=== PATIENT | male | born 1950 | race Caucasian/White ===

== ENCOUNTER → 2017-09-23 | Outpatient (CLI) | payer BC ==
[~2017-09-23] MED LIST: LTR510 PO; MEDLIST
[2017-09-23 10:02] LABS: % FREE PSA 17.9 %; FREE PSA 0.85 ng/ml; PROSTATE SPECIFIC ANTIGEN 4.75 ng/ml (0.000-4.000)
== END | disposition home or self-care (01) ==
LOC: C.LAB1850 08:17
PROVIDERS: ATTEND Urology
DX: R97.20 Elevated prostate specific antigen [PSA] (principal)

== ENCOUNTER 2021-06-26 04:44 | Observation (INO) ==
--- NOTE | 2021-06-26 05:13 | Emergency Department Note ---
History of Present Illness General Chief complaint: Cardiac Assessment Stated complaint: SOB, CLAMMY Time Seen by Provider: 06/26/21 04:54 Source: patient Mode of arrival: ambulatory Limitations: no limitations History of Present Illness Provider complaint: palpitations Onset (ago): week(s) 2 Relieved By: + rest Exacerbated By: + movement Associated symptoms: + chest pain, + nausea/vomiting and + shortness of breath Treatments prior to arrival: none This is a 71-year-old male presents the emergency department complaining of palpitations. Patient states he first began noticing symptoms 2 weeks ago, with a sense of fluttering in his chest. He states he also noticed intermittent sweating, shortness of breath, and lightheadedness, particularly with standing and movement. Patient states symptoms were initially intermittent, and he did follow-up with his PCP Dr. Mensah who referred him for a Holter monitor. He states the Holter could not be placed until this Wednesday. He states the symptoms have become more persistent and he was feeling worse tonight, and his convinced him to come to the emergency room. Patient initially noted to have a heart rate in the 30s in triage, upon being placed in the room heart rate was in the 70s with frequent ectopy. Patient states when his symptoms began, he did cut back on his use of caffeine. Admits to occasional alcohol on the weekends w hen going out to restaurants, denies any recent change in medications, illness, or antibiotics. No prior heart history. He states he did undergo a stress test and echo in 2019. Pt seen during a time of high acuity and national emergency pandemic while wearing PPE. Home Medications Medication Instructions Recorded Confirmed Type amlodipine 5 mg-benazepril 20 mg 20 cap PO DAILY 06/26/21 06/26/21 History capsule (Lotrel) dutasteride 0.5 mg capsule 0.5 mg PO DAILY 06/26/21 06/26/21 History (Avodart) tamsulosin 0.4 mg capsule (Flomax) 0.8 mg PO DAILY 06/26/21 06/26/21 History Allergies Allergy/AdvReac Type Severity Reaction Status Date / Time No Known Allergies Allergy Verified 10/02/19 13:50 Past Med/Surg History Medical History (Updated 06/27/21 @ 06:49 by Sara Phillips DO) BPH (benign prostatic hyperplasia) Elevated PSA Frequent PVCs Hypertension Other eosinophilia Surgical History (Updated 06/26/21 @ 09:04 by Obie Marcelino PA-C) No pertinent past surgical history Family History (Updated 06/26/21 @ 09:05 by Obie Marcelino PA-C) Father Heart disease at age 85 Social History (Updated 06/26/21 @ 09:06 by Obie Marcelino PA-C) Smoking Status: Former smoker Tobacco Type: Cigarettes Age Quit Using Tobacco: 20; Years Smoked: 3; Cigarettes Per Day: 6; Number of Years Since Quit: 51; Second Hand Exposure: No; Do You Dip or Chew Tobacco: No; Tobacco Cessation Education Requested by Patient: No Hx Alcohol Use: No Hx Substance Use: No Preferred Language: Burkinan Communication Ability: Effective Merchandising Representative Required: No Beliefs That Will Affect Care: None Current Living Situation: Spouse current occupational status: employed 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 Other Information That Helps Us Care for You: No Feels Safe at Home: Yes Safety Concerns: Feels Safe At This Time Assistive Devices: Glasses Review of Systems A total of 10 systems reviewed and were otherwise negative All systems reviewed & are unremarkable except as noted in HPI & below Physical Exam Vital Signs Vital Signs - 24 hr 06/26/21 07:01 Pulse Rate 61 Pulse Rate from SpO2 Sensor 32 L Respiratory Rate 23 Blood Pressure 128/69 Blood Pressure Mean 88 Pulse Oximetry 95 GENERAL: alert, well appearing, well nourished, no distress, non-toxic EYE EXAM: normal conjunctiva, PERRL and EOM's grossly intact OROPHARYNX: no exudate, no erythema, lips, buccal mucosa, and tongue normal and mucous membranes are moist NECK: supple, no nuchal rigidity, no adenopathy, non-tender LUNGS: Clear to auscultation. Normal chest wall mechanics, no w/r/r HEART: no murmurs, S1 normal and S2 normal ABDOMEN: abdomen soft, non-tender, normo-active bowel sounds, no masses, no rebound or guarding. BACK: Back is symmetrical on inspection and there is no deformity, no midline tenderness, no CVA tenderness. SKIN: no rashes and no bruising UPPER EXTREMITIES: upper extremities are grossly normal. FROM, nml pulses b/l. LOWER EXTREMITIES: No pitting edema. FROM, nml pulses b/l. NEURO EXAM: Normal sensorium, cranial nerves II-XII grossly intact, normal speech, no gross weakness of arms, no gross weakness of legs. Gross sensation intact. Course Administered Medications Enalapril Maleate (Enalapril Maleate 10 Mg Tab) 20 mg PO DAILY BRETT Stop: 07/26/21 09:29 Last Admin: 06/26/21 12:14 Dose: 20 mg Documented by: [id number] Enoxaparin Sodium (Enoxaparin Inj 40 Mg/0.4 Ml Syr) 40 mg SQ DAILY BRETT Stop: 07/26/21 09:29 Last Admin: 06/26/21 12:14 Dose: 40 mg Documented by: [id number] Metoprolol Tartrate (Metoprolol Tartrate 25 Mg Tab) 25 mg PO BID BRETT Stop: 07/26/21 20:59 Last Admin: 06/26/21 21:30 Dose: 25 mg Documented by: [id number] Miscellaneous (Dutasteride-Order Awaiting Action) 1 ea N/A QS BRETT Stop: 07/26/21 15:59 Last Admin: 06/26/21 23:34 Dose: 1 ea Documented by: [id number] Admin: 06/26/21 15:59 Dose: Not Given Documented by: [id number] Discontinued Medications Amlodipine Besylate (Amlodipine Besylate 5 Mg Tab) 5 mg PO DAILY BRETT Stop: 07/26/21 09:29 Last Admin: 06/26/21 12:13 Dose: 5 mg Documented by: [id number] Medical Decision Making Differential Diagnosis Differential diagnosis includes etiologies such as premature contractions, electrolyte abnormality, cardiac dysrhythmia, thyroid dysfunction, pulmonary emb olism, infection, gastrointestinal, as well as others were entertained. Medical Records Attestation: I reviewed the patient's medical records. Home Medications Current Medication List: was personally reviewed by me Laboratory Data Attestation: I reviewed the patient's lab results. Result diagrams: 06/27/21 06:11 06/26/21 04:55 Lab Results 06/26/21 06/26/21 06/26/21 Range/Units 04:55 04:55 04:55 WBC 7.98 (4.8-10.8) K/uL RBC 5.01 (4.7-6.1) M/uL Hgb 15.7 (14.0-18.0) g/dL Hct 45.6 (42-52) % MCV 91.0 (80-100) fL MCH 31.3 (25-34) pg MCHC 34.4 (32-36) g/dL RDW Std Deviation 44.7 (36.4-46.3) fL RDW Coeff of Uli 13.6 (11.5-14.5) % Plt Count 204 (130-400) K/uL MPV 10.7 H (7.4-10.4) fL Immature Gran % (Auto) 0.3 % Neut % (Auto) 41.8 % Lymph % (Auto) 32.5 % [place] % (Auto) 11.8 % Eos % (Auto) 12.7 % Baso % (Auto) 0.9 % Neut # (Auto) 3.35 (1.4-6.5) K/uL Lymph # (Auto) 2.59 (1.2-3.4) K/uL [place] # (Auto) 0.94 H (0.11-0.59) K/uL Eos # (Auto) 1.01 H (0-0.5) K/uL Baso # (Auto) 0.07 (0-0.2) K/uL Immature Gran # (Auto) 0.02 (0.00-0.02) K/uL Sodium 140 (136-145) mmol/L Potassium 4.3 (3.5-5.1) mmol/L Chloride 111 H (98-107) mmol/L Carbon Dioxide 24 (21-32) mmol/L Anion Gap 5.0 (3-11) BUN 13 (7-18) mg/dl Creatinine 0.91 (0.6-1.4) mg/dl Est Cr Clr Drug Dosing 90.7 ml/min Est GFR ( Amer) 96.6 ml/min Est GFR (Non-Af Amer) 83.3 ml/min BUN/Creatinine Ratio 13.9 (10-20) Glucose 116 H (70-99) mg/dl Calcium 8.9 (8.5-10.1) mg/dl Magnesium 2.3 (1.8-2.4) mg/dl Total Bilirubin 0.7 (0.2-1) mg/dl AST 17 (15-37) U/L ALT 32 (12-78) U/L Alkaline Phosphatase 64 (45-117) U/L Troponin I < 0.015 (0-0.045) ng/ml NT-Pro-B Natriuret Pep 668 (0-900) pg/ml Total Protein 7.6 (6.4-8.2) gm/dl Albumin 4.0 (3.4-5.0) gm/dl Globulin 3.6 (2.5-4.0) gm/dl Albumin/Globulin Ratio 1.1 (0.9-2) TSH 1.720 (0.300-4.500) uIu/ml Lyme Disease IgG Ab Negative (Negative) Lyme Disease IgM Ab Negative (Negative) COVID-19 Eval Order SARS-CoV-2 (PCR) (Negative) 06/26/21 06/26/21 Range/Units 05:50 05:50 WBC (4.8-10.8) K/uL RBC (4.7-6.1) M/uL Hgb (14.0-18.0) g/dL Hct (42-52) % MCV (80-100) fL MCH (25-34) pg MCHC (32-36) g/dL RDW Std Deviation (36.4-46.3) fL RDW Coeff of Uli (11.5-14.5) % Plt Count (130-400) K/uL MPV (7.4-10.4) fL Immature Gran % (Auto) % Neut % (Auto) % Lymph % (Auto) % [place] % (Auto) % Eos % (Auto) % Baso % (Auto) % Neut # (Auto) (1.4-6.5) K/uL Lymph # (Auto) (1.2-3.4) K/uL [place] # (Auto) (0.11-0.59) K/uL Eos # (Auto) (0-0.5) K/uL Baso # (Auto) (0-0.2) K/uL Immature Gran # (Auto) (0.00-0.02) K/uL Sodium (136-145) mmol/L Potassium (3.5-5.1) mmol/L Chloride (98-107) mmol/L Carbon Dioxide (21-32) mmol/L Anion Gap (3-11) BUN (7-18) mg/dl Creatinine (0.6-1.4) mg/dl Est Cr Clr Drug Dosing ml/min Est GFR ( Amer) ml/min Est GFR (Non-Af Amer) ml/min BUN/Creatinine Ratio (10-20) Glucose (70-99) mg/dl Calcium (8.5-10.1) mg/dl Magnesium (1.8-2.4) mg/dl Total Bilirubin (0.2-1) mg/dl AST (15-37) U/L ALT (12-78) U/L Alkaline Phosphatase (45-117) U/L Troponin I (0-0.045) ng/ml NT-Pro-B Natriuret Pep (0-900) pg/ml Total Protein (6.4-8.2) gm/dl Albumin (3.4-5.0) gm/dl Globulin (2.5-4.0) gm/dl Albumin/Globulin Ratio (0.9-2) TSH (0.300-4.500) uIu/ml Lyme Disease IgG Ab (Negative) Lyme Disease IgM Ab (Negative) COVID-19 Eval Order Covid19 at [facility] SARS-CoV-2 (PCR) NEGATIVE (Negative) Imaging Data My Impression: X-ray: I interpreted the following studies. Chest: A single view study of the chest was reviewed and was negative for cardiomegaly, focal infiltrate, effusion, pulmonary edema, or wide mediastinum. Radiologist's Impression: Chest X-Ray 06/26/21 05:08 XR chest 1V portable CLINICAL HISTORY: palpitations COMPARISON STUDY: Chest radiograph February 01, 2015. FINDINGS: Lung volumes are normal. Lungs are clear. There is no pneumothorax or pleural effusion. There is mild enlargement of the cardiac silhouette. Media stinal contours are normal. There is no evidence for pulmonary edema. IMPRESSION: No acute cardiopulmonary findings. ACT 112: Negative or not required by law. Electronically signed by: Kyle Fontenot M.D. 06/26/2021 6:51 AM ECG Data Attestation: I personally reviewed and interpreted this ECG as follows: Indication: + palpitations Rate (beats per minute): 78 Rhythm: + normal sinus ECG Intervals/blocks: + First degree AV block, + IVCD and + Normal QT ECG [place]: + Left axis deviation ECG ST segments: + Nonspecific ST abnormalities ECG Findings: + PVCs MDM Narrative This is a 71-year-old male presents emergency department due to concern for worsening palpitations with associated chest discomfort, lightheadedness, and shortness of breath. Patient found to be significantly bradycardic upon arrival in triage with concern for third-degree AV block. Patient immediately brought back and I was called to the room. Patient at that time then found to be changing from bigeminy to a second-degree AV block, to a sinus rhythm with frequent PVCs. Patient feels improved at rest, however with any attempts at standing he feels significantly lightheaded, with increased discomfort and a slight sense of feeling short of breath. No recent illness or change in medications. Patient's labs reassuring including a negative Lyme, and normal electrolytes. No prior cardiac history and patient does not routinely follow with cardiology. He was scheduled for an outpatient Holter monitor to begin this Wednesday. Due to significant symptoms particularly with any attempts at sta nding or ambulation and multiple different rhythms noted while monitored on telemetry, case discussed with hospitalist for additional evaluation and management. Patient was rechecked multiple times in the department, kept up-to-date on all results and plan. He and verbalized understanding. P atient continued to be well-appearing while at rest. An order was placed for continuous cardiac monitoring. The monitor shows a rate of _68_ with _bigeminy_ rhythm. Impression & Plan Palpitation, Lightheadedness, Abnormal ECG, Frequent PVCs Discharge Plan Visit Data Chief Complaint: Cardiac Assessment Stated Complaint: SOB, CLAMMY ED Provider: Sara Phillips Discharge Problem: Palpitation, Lightheadedness, Abnormal ECG, Frequent PVCs Patient Disposition: Admitted As Inpatient Discharge Instructions Interventions: ED Discharge Assessment Last Done: 06/26/21 08:23
[2021-06-26 05:21] LABS: Basophils # (auto) 0.07 K/uL (0-0.2); Basophils % (auto) 0.9 %; Eosinophils # (auto) 1.01 K/uL (0-0.5); Eosinophils % (auto) 12.7 %; Hematocrit (blood only) 45.6 % (42-52); Hemoglobin 15.7 g/dL (14.0-18.0); Immature Granulocytes # (auto) 0.02 K/uL (0.00-0.02); Immature Granulocytes % (auto) 0.3 %; Lymphocytes # (auto) 2.59 K/uL (1.2-3.4); Lymphocytes % (auto) 32.5 %; Mean Corpuscular Hemoglobin 31.3 pg (25-34); Mean Corpuscular Hgb Conc 34.4 g/dL (32-36); Mean Platelet Volume 10.7 fL (7.4-10.4); Monocytes # (auto) 0.94 K/uL (0.11-0.59); Monocytes % (auto) 11.8 %; Neutrophils # (auto) 3.35 K/uL (1.4-6.5); Neutrophils % (auto) 41.8 %; Platelet Count 204 K/uL (130-400); RDW Coefficient of Variation 13.6 % (11.5-14.5); RDW Standard Deviation 44.7 fL (36.4-46.3); Red Blood Count 5.01 M/uL (4.7-6.1); White Blood Count 7.98 K/uL (4.8-10.8)
[2021-06-26 05:27] LABS: Alanine Aminotransferase 32 U/L (12-78); Aspartate Aminotransferase 17 U/L (15-37); BUN Creatinine Ratio 13.9 (10-20); Blood Urea Nitrogen 13 mg/dl (7-18); Calcium 8.9 mg/dl (8.5-10.1); Carbon Dioxide 24 mmol/L (21-32); Chloride 111 mmol/L (98-107); Creatinine Clr Calc Pharmacy 90.7 ml/min; Est GFR (African American) 96.6 ml/min; Est GFR (Non-African American) 83.3 ml/min; Glucose 116 mg/dl (70-99); Magnesium 2.3 mg/dl (1.8-2.4); Potassium 4.3 mmol/L (3.5-5.1); Sodium 140 mmol/L (136-145)
[2021-06-26 05:38] LABS: Albumin Globulin Ratio 1.1 (0.9-2); Alkaline Phosphatase 64 U/L (45-117); Bilirubin,Total 0.7 mg/dl (0.2-1); Globulin 3.6 gm/dl (2.5-4.0); NT Pro B Type Natriuretic Pept 668 pg/ml (0-900); Total Protein 7.6 gm/dl (6.4-8.2); Troponin I < 0.015 ng/ml (0-0.045)
[2021-06-26 06:13] LABS: Lyme Ab IgG w/WB Rflx Negative (Negative); Lyme Ab IgM w/WB Rflx Negative (Negative)
--- NOTE | 2021-06-26 06:53 | XRay Report ---
XR chest 1V portable CLINICAL HISTORY: palpitations COMPARISON STUDY: Chest radiograph February 01, 2015. FINDINGS: Lung volumes are normal. Lungs are clear. There is no pneumothorax or pleural effusion. The re is mild enlargement of the cardiac silhouette. Mediastinal contours are normal. There is no eviden ce for pulmonary edema. IMPRESSION: No acute cardiopulmonary findings. ACT 112: Negative or not required by law. Electronically signed by: Kyle Fontenot M.D. 06/26/2021 6:51 AM
--- NOTE | 2021-06-26 08:59 | History & Physical Report ---
Date of Service June 26, 2021 Assessment & Plan (1) Abnormal ECG: Plan: Attending: Dr. Clifton Weaver Impression: 71-year-old male with history of progressive PVCs and now with feeling of atrial flutter. No syncope. No chest pain. Abnormal ECG with PVCs and prolongation of QRS duration. Troponin negative. Being admitted to telemetry for further monitoring and evaluation by cardiology Echocardiogram Serial troponins Electrolytes balanced Troponin and TSH within normal limits Continue home medications for now. No beta-negar due to heart rate in the 50s No indication for acute coronary syndrome Continue to monitor on telemetry Anticipate the patient will probably need Holter monitor or other outpatient monitoring for diagnosis Cardiology consulted. Appreciate their input (2) Hypertension: Plan: Blood pressures well controlled Patient reports systolic pressures in the 120s usually No chest pain or tightness. Continue amlodipine/benazepril Monitor on telemetry (3) BPH (benign prostatic hyperplasia): Plan: Continue dual asteroid and tamsulosin No history of prostate cancer (4) Other eosinophilia: Plan: Eosinophils elevated at 1.01 Incidental finding on differential No reports of myalgias or chest pain No history of ascites No indication for sepsis No reports of seasonal allergies or history of asthma Outpatient work-up as needed (5) DVT prophylaxis: Plan: Chemical prophylaxis with enoxaparin 40 mg subcu every 24 hours Ambulate as tolerated with telemetry Please refer to Dr. Weaver's addendum for further recommendations and corrections Plan: Patient admitted for observation status History of Present Illness Chief Complaint: Palpitations Primary Care Provider: Robin Lara MD Attending: Dr. Weaver This is a 71-year-old male with a past medical history of hypertension, BPH. He has a very remote tobacco abuse history in college. Otherwise, an occasional cigar. 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 The patient states that he has had progressive palpitations over the last several months. They have gotten to the point where it is more of a flutter. He also reports that the frequency has increased. He was seen in the outpatient setting and referred for Holter monitor which was going to be placed tomorrow. Overnight he had increased flutter associated with nausea and came to the emergency department for evaluation at the advice of his Sandra. He is quite active in his job and reports no chest pain at rest or with exertion. He has no dyspnea with exertion. He has no significant shortness of breath. He denies any prior history of heart disease other than hypertension. His father had some heart disease but at the age of 85. His mother had no heart disease that the patient is aware of. He has no history of malignancy. No history of thromboembolic disease. No history of anemia. He denies pleuritic chest pain. He has no cough or sputum production and further denies hemoptysis. No lower extremity pain. No lower extremity edema. He is not aware of any tachyarrhythmia with the feelings of palpitation or a flutter. He has no other acute complaints. The patient has 2 children who are alive and well. He denies any recent fever. He has no other nausea or vomiting. He has no diarrhea. He has no Covid-like symptoms. He is vaccinated for Covid with [employer] x2. Allergies Allergy/AdvReac Type Severity Reaction Status Date / Time No Known Allergies Allergy Verified 10/02/19 13:50 Home Medications Medication Instructions Recorded Confirmed Type amlodipine 5 mg-benazepril 20 mg 20 cap PO DAILY 06/26/21 06/26/21 History capsule (Lotrel) dutasteride 0.5 mg capsule 0.5 mg PO DAILY 06/26/21 06/26/21 History (Avodart) tamsulosin 0.4 mg capsule (Flomax) 0.8 mg PO DAILY 06/26/21 06/26/21 History Past Med/Surg History Medical History (Updated 06/26/21 @ 09:20 by Obie Marcelino PA-C) BPH (benign prostatic hyperplasia) Elevated PSA Hypertension Other eosinophilia Surgical History (Updated 06/26/21 @ 09:04 by Obie Marcelino PA-C) No pertinent past surgical history Family History (Updated 06/26/21 @ 09:05 by Obie Marcelino PA-C) Father Heart disease at age 85 Social History (Updated 06/26/21 @ 09:06 by Obie Marcelino PA-C) Smoking Status: Former smoker Tobacco Type: Cigarettes Age Quit Using Tobacco: 20; Years Smoked: 3; Cigarettes Per Day: 6; Number of Years Since Quit: 51; Second Hand Exposure: No; Do You Dip or Chew Tobacco: No; Tobacco Cessation Education Requested by Patient: No Hx Alcohol Use: No Hx Substance Use: No Preferred Language: Comoran Communication Ability: Effective Trial Examiner Required: No Beliefs That Will Affect Care: None Current Living Situation: Spouse current occupational status: employed 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 Pupils equal and round NOSE: No evidence of epistaxis MOUTH: No lesions or candidiasis NECK: Supple. No appreciation of carotid bruits LUNGS: CTA B/L, no wheezes, rales or rhonchi. Good inspiratory effort HEART: Regular, rate controlled in the 50s ABDOMEN: Soft, NT, ND, BS Present. No pain with deep palpation. No rebound tenderness. No guarding. EXTREMITIES: No LE edema, pedal pulses intact and equal bilaterally NEURO: A&OX3. Cranial nerves II through XII appear to be grossly intact without focal deficit Results & Data Results & Data ([facility]) Vital Signs (Past 12 Hours) Vital Signs Temp Pulse Resp BP Pulse Ox 06/26/21 08:00 57 L 18 128/69 95 06/26/21 07:01 61 23 128/69 95 06/26/21 06:32 60 17 135/61 95 06/26/21 06:01 61 15 116/59 L 94 06/26/21 05:35 65 17 129/59 L 96 06/26/21 05:00 64 14 163/70 H 98 06/26/21 04:47 36.4 C L 36 L 20 176/78 H 97 Laboratory Results 06/26/21 04:55 06/26/21 04:55 06/26/21 04:55 Troponin I < 0.015 Diagnostic Findings Chest X-Ray 06/26/21 05:08 XR chest 1V portable CLINICAL HISTORY: palpitations COMPARISON STUDY: Chest radiograph February 01, 2015. FINDINGS: Lung volumes are normal. Lungs are clear. There is no pneumothorax or pleural effusion. There is mild enlargement of the cardiac silhouette. Mediastinal contours are normal. There is no evidence for pulmonary edema. IMPRESSION: No acute cardiopulmonary findings. ACT 112: Negative or not required by law. Electronically signed by: Kyle Fontenot M.D. 06/26/2021 6:51 AM Medications Administered Current Medications Acetaminophen (Acetaminophen 325 Mg Tab) 650 mg PO Q4H PRN PRN Reason: Pain or Fever Stop: 07/26/21 09:05 Enoxaparin Sodium (Enoxaparin Inj 40 Mg/0.4 Ml Syr) 40 mg SQ Q24H BRETT Stop: 07/26/21 09:05 Non-Formulary Medication (Amlodipine-Benazepril [Lotrel]) 20 cap PO DAILY BRETT Stop: 07/26/21 09:05 Non-Formulary Medication (Dutasteride [Avodart]) 0.5 mg PO DAILY [facility] Stop: 07/26/21 09:05 Ondansetron HCl (Ondansetron Inj 2 Mg/Ml 2 Ml Vial) 4 mg IV Q6H PRN PRN Reason: Nausea Stop: 07/26/21 09:05 ECG Additional Comments: EKG 06/26/2021 Vent. rate 78 BPM WI interval 206 ms QRS duration 120 ms QT/QTc 394/449 ms P-R-T axes 71 -32 83 Sinus rhythm with frequent Premature ventricular complexes Left axis deviation Possible Anterior infarct , age undetermined Abnormal ECG When compared with ECG of 01-JAN-2009 14:30, Premature ventricular complexes are now Present QRS duration has increased Borderline criteria for Anterior infarct are now Present Criteria for Inferior infarct are no longer Present Code Status & VTE Plan Code Status Level I\full resuscitation VTE Prophylaxis Plan VTE Prophylaxis will be ordered: Yes Supervising Physician Co-Signing Physician Notes Patient seen and examined with Obie Marcelino PA-C. I agree with his exam findings, review of systems, assessment and plan. I personally reviewed the lab work and imaging as well. patient resting comfortably, still waiting on echocardiogram report and cardiology consult - Palpitations, flutter sensation at home, progressively getting worse resting HR in the 50's with frequent PVCs, bigeminy check echocardiogram, consult cardiology anticipate he may need monitor even after discharge PG Care Time/CCT Total # of Minutes Spent Total Time Spent with Patient: Total time spent is greater than 50% in c oordination of care (as documented) at patient's floor/unit and/or counseling patient:45 minutes Coding Level of Care Code 28222 Initial Inpt Care Lvl 3 Diagnoses Abnormal ECG R94.31 Hypertension I10 BPH (benign prostatic hyperplasia) N40.0 DVT prophylaxis Z29.9 Other eosinophilia D72.19 Time Spent (min) 45 Comment Patient seen in conjunction with Dr. Weaver
[2021-06-26] MEDS ORDERED: ONDANSETRON INJ 2 MG/ML 2 ML VIAL IV PRN (09:06)
[2021-06-26] MEDS ORDERED: ACETAMINOPHEN 325 MG TAB PO PRN (09:06)
[2021-06-26] MEDS ORDERED: amLODIPine BESYLATE 5 MG TAB PO SCH (09:30)
[2021-06-26] MEDS: ENALAPRIL MALEATE 10 MG TAB PO SCH (12:14)
[2021-06-26] MEDS: ENOXAPARIN INJ 40 MG/0.4 ML SYR SQ SCH (12:14)
--- NOTE | 2021-06-26 16:35 | XCELERA ---
[id number]
[2021-06-26] MEDS: METOPROLOL TARTRATE 25 MG TAB PO SCH (21:30)
--- NOTE | 2021-06-26 22:01 | Cardiology Consultation ---
Date of Consultation June 26, 2021 Assessment & Plan (1) Frequent PVCs: (2) Mitral regurgitation: (3) LVH (left ventricular hypertrophy): (4) Lightheadedness: (5) Hypertension: ASSESSMENT/PLAN: 1.Frequent PVCs: He appears to be symptomatic, which is affecting his quality of life. We discussed the diagnosis. He was reassured. Start metoprolol 25 mg twice daily to see if it off for symptomatic relief. 2. Asymmetric left ventricular hypertrophy: Could possibly represent hypertrophic cardiomyopathy. This may be playing a role with his exertional lightheadedness. No obvious LVOT obstruction at rest. Recommend beta-negar. We discussed potentially undergoing stress echo to evaluate for LVOT obstruction with exercise, as well as blood pressure response. Consider stress echo tomorrow with Doppler evaluation. Continue telemetry. 3. Mitral regurgitation: Discussed echo findings. Non severe. Monitor over time. 4. Lightheadedness: Unclear if this is related toPVCs, severe asymmetric LVH with LVOT obstruction (although not seen at rest conditions), or other etiology. Evaluation as noted above with initiation of beta-negar as well. 5. Tobacco abuse: Stop smoking. 6. Hypertension: Stop amlodipine and initiate beta-negar as above. Beta- negar may offer other benefits in regards to his palpitations. Also if he does develop exertional LVOT obstruction, beta-negar could offer benefit and medications which reduce preload, could exacerbate such hemodynamics. 7. Disposition: Cardiology will continue to follow along. Patient care communicated with Dr. Weaver of the primary hospitalist service. Thank you for allowing me to participate in the care of your patient. Please call for any other questions or concerns. Sincerely, Miguelangel Santos M.D. History of Present Illness Reason for Consultation: "Pre-syncope, frequent PVC, bradycardia" Requesting Physician: Clifton Weaver DO Attending Physician: Clifton Weaver DO History of Present Illness Mr. Guillory is a very pleasant 71-year-old gentleman with a history significant for hypertension who was admitted on 06/26/2021 with palpitations. He has been experiencing palpitations described as a flutter sensation on and off for approximately 2 years. For the past 2 weeks, symptoms have worsened. The night prior to presentation, symptoms were even worse and associated with shortness of breath. He felt like he was dying." Palpitations have been intermittently accompanied by shortness of breath and nausea. His convinced him to come to the ER at approximately 4:00 a.m. this morning. He admits that 2 days prior to presentation, he was seen by primary care for palpitations. A beta-negar was discussed but not initiated due to concerns of hypotension. A 48 hour Holter monitor was scheduled for tomorrow. He recalls being told that he had abnormal ECG or telemetry following a colonoscopy in 2019. His PCP, Dr. Lara, arranged for ECHO and stress testing which apparently was unremarkable. This was done through [facility]. He does not participate in regularly scheduled dedicated exercise but does walk on a treadmill once every couple of weeks. He otherwise remains quite active. At work, he sometimes runs up 2 flights of stairs quickly, which can be accompanied by lightheadedness. He denies syncope. He denies chest pain, edema, melena, hematochezia, hematuria, or other bleeding. He was noted to have frequent PVCs. He reports being told that his pulse was in the 30s. Review of systems: As above. Review of systems otherwise negative/unremarkable. Family history: Father diagnosed with CAD at the age of 82. Social history: Smoked occasionally in college and then later in life occasional cigar. Occasional alcohol. No drugs. Lives at home with his , Maya. They have 2 children, a son and daughter. He is self-employed (real estate appraisal). He was alone in his hospital room. Allergies Allergy/AdvReac Type Severity Reaction Status Date / Time No Known Allergies Allergy Verified 10/02/19 13:50 Home Medications Medication Instructions Recorded Confirmed Type amlodipine 5 mg-benazepril 20 mg 20 cap PO DAILY 06/26/21 06/26/21 History capsule (Lotrel) dutasteride 0.5 mg capsule 0.5 mg PO DAILY 06/26/21 06/26/21 History (Avodart) tamsulosin 0.4 mg capsule (Flomax) 0.8 mg PO DAILY 06/26/21 06/26/21 History Patient History Medical History (Updated 06/26/21 @ 22:11 by Po Santos MD) BPH (benign prostatic hyperplasia) Elevated PSA Frequent PVCs Hypertension Other eosinophilia Surgical History (Updated 06/26/21 @ 09:04 by Obie Marcelino PA-C) No pertinent past surgical history Family History (Updated 06/26/21 @ 09:05 by Obie Marcelino PA-C) Father Heart disease at age 85 Social History (Updated 06/26/21 @ 09:06 by Obie Marcelino PA-C) Smoking Status: Former smoker Tobacco Type: Cigarettes Age Quit Using Tobacco: 20; Years Smoked: 3; Cigarettes Per Day: 6; Number of Years Since Quit: 51; Second Hand Exposure: No; Do You Dip or Chew Tobacco: No; Tobacco Cessation Education Requested by Patient: No Hx Alcohol Use: No Hx Substance Use: No Preferred Language: Bermudian Communication Ability: Effective Systems Architecture Analyst Required: No Beliefs That Will Affect Care: None Current Living Situation: Spouse current occupational status: employed 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 Alert and oriented. HEENT: Anicteric sclera. Neck: No JVD. No bruits. Normal carotid upstrokes bilaterally. Cardiac: PMI was nondisplaced. No ventricular heave. Regular with frequent ectopy. Normal S1-S2. 2/6 holosystolic murmur. No rubs or gallops. Pulmonary: Clear to auscultation bilaterally without wheezes, rales, or rhonchi. Abdomen: Soft, nontender, nondistended, with normoactive bowel sounds. No bruits noted. Extremities: 2+ radial pulses bilaterally. 2+ posterior tibialis pulses bilaterally. No edema or cyanosis. Psychiatric: Affect appears appropriate. Results & Data ([facility]) Vital Signs (Past 12 Hours) Vital Signs Temp Pulse Pulse Resp BP Pulse Ox 06/26/21 19:23 37.0 C 63 18 102/55 L 93 06/26/21 15:10 66 06/26/21 15:08 36.9 C 48 L 18 117/58 L 94 06/26/21 13:31 36.7 C 61 20 127/61 97 06/26/21 11:38 36.8 C 64 18 128/72 95 Laboratory Results Laboratory Results - last 24 hr 06/26/21 06/26/21 06/26/21 04:55 04:55 04:55 WBC 7.98 RBC 5.01 Hgb 15.7 Hct 45.6 MCV 91.0 MCH 31.3 MCHC 34.4 RDW Std Deviation 44.7 RDW Coeff of Uli 13.6 Plt Count 204 MPV 10.7 H Immature Gran % (Auto) 0.3 Neut % (Auto) 41.8 Lymph % (Auto) 32.5 Preston % (Auto) 11.8 Eos % (Auto) 12.7 Baso % (Auto) 0.9 Neut # (Auto) 3.35 Lymph # (Auto) 2.59 Preston # (Auto) 0.94 H Eos # (Auto) 1.01 H Baso # (Auto) 0.07 Immature Gran # (Auto) 0.02 Sodium 140 Potassium 4.3 Chloride 111 H Carbon Dioxide 24 Anion Gap 5.0 BUN 13 Creatinine 0.91 Est Cr Clr Drug Dosing 90.7 Est GFR ( Amer) 96.6 Est GFR (Non-Af Amer) 83.3 BUN/Creatinine Ratio 13.9 Glucose 116 H Calcium 8.9 Magnesium 2.3 Total Bilirubin 0.7 AST 17 ALT 32 Alkaline Phosphatase 64 Troponin I < 0.015 NT-Pro-B Natriuret Pep 668 Total Protein 7.6 Albumin 4.0 Globulin 3.6 Albumin/Globulin Ratio 1.1 TSH 1.720 Lyme Disease IgG Ab Negative Lyme Disease IgM Ab Negative COVID-19 Eval Order SARS-CoV-2 (PCR) 06/26/21 06/26/21 05:50 05:50 WBC RBC Hgb Hct MCV MCH MCHC RDW Std Deviation RDW Coeff of Uli Plt Count MPV Immature Gran % (Auto) Neut % (Auto) Lymph % (Auto) Preston % (Auto) Eos % (Auto) Baso % (Auto) Neut # (Auto) Lymph # (Auto) Preston # (Auto) Eos # (Auto) Baso # (Auto) Immature Gran # (Auto) Sodium Potassium Chloride Carbon Dioxide Anion Gap BUN Creatinine Est Cr Clr Drug Dosing Est GFR ( Amer) Est GFR (Non-Af Amer) BUN/Creatinine Ratio Glucose Calcium Magnesium Total Bilirubin AST ALT Alkaline Phosphatase Troponin I NT-Pro-B Natriuret Pep Total Protein Albumin Globulin Albumin/Globulin Ratio TSH Lyme Disease IgG Ab Lyme Disease IgM Ab COVID-19 Eval Order Covid19 at [facility] SARS-CoV-2 (PCR) NEGATIVE Diagnostic Findings Telemetry personally reviewed: Sinus rhythm with frequent PVCs including bigeminal pattern. Echo 06/26/2021: Normal LV size, wall motion, systolic function. EF 50-55%. Severe asymmetric hypertrophy involving basal septum up to 2.3 cm. Mild left atrial dilation. Moderate MR. RVSP 30. Frequent PVCs. ECG personally reviewed: ECG 06/26/2021: Sinus rhythm with frequent PVCs 78 bpm. IVCB. Chest x-ray 06/26/2021: No acute cardiopulmonary findings. Medications Administered Current Inpatient Medications Acetaminophen (Acetaminophen 325 Mg Tab) 650 mg PO Q4H PRN PRN Reason: Pain or Fever Stop: 07/26/21 09:05 Enalapril Maleate (Enalapril Maleate 10 Mg Tab) 20 mg PO DAILY BRETT Stop: 07/26/21 09:29 Last Admin: 06/26/21 12:14 Dose: 20 mg Documented by: Enoxaparin Sodium (Enoxaparin Inj 40 Mg/0.4 Ml Syr) 40 mg SQ DAILY BRETT Stop: 07/26/21 09:29 Last Admin: 06/26/21 12:14 Dose: 40 mg Documented by: Metoprolol Tartrate (Metoprolol Tartrate 25 Mg Tab) 25 mg PO BID BRETT Stop: 07/26/21 20:59 Last Admin: 06/26/21 21:30 Dose: 25 mg Documented by: Miscellaneous (Dutasteride-Order Awaiting Action) 1 ea N/A QS BRETT Stop: 07/26/21 15:59 Last Admin: 06/26/21 15:59 Dose: Not Given Documented by: Ondansetron HCl (Ondansetron Inj 2 Mg/Ml 2 Ml Vial) 4 mg IV Q6H PRN PRN Reason: Nausea Stop: 07/26/21 09:05 PG Care Time/CCT Total # of Minutes Spent Total Time Spent with Patient: Total time spent is greater than 50% in coordination of care (as documented) at patient's floor/unit and/or counseling patient: Coding Level of Care Code 35160 Office/Outpt Visit, New Diagnoses Frequent PVCs I49.3 Mitral regurgitation I34.0 LVH (left ventricular hypertrophy) I51.7 Lightheadedness R42 Hypertension I10
--- NOTE | 2021-06-27 06:06 | Electrocardiogram Report ---
Test Reason : Blood Pressure : / mmHG Vent. Rate : 078 BPM Atrial Rate : 078 BPM P-R Int : 206 ms QRS Dur : 120 ms QT Int : 394 ms P-R-T Axes : 071 -32 083 degrees QTc Int : 449 ms Sinus rhythm with frequent Premature ventricular complexes Left axis deviation Poor R wave progression, consider anterior IN vs. lead placement vs. LVH Nonspecific T wave abnormality Non-specific intra-ventricular conduction block Abnormal ECG When compared with ECG of 01-JAN-2009 14:30, Premature ventricular complexes are now Present QRS duration has increased Criteria for Inferior infarct are no longer Present Confirmed by Po Santos ([id number]) on 06/27/2021 6:05:59 AM Referred By: REFERRED SELF Confirmed By:Po Santos
[2021-06-27 06:36] LABS: Hematocrit (blood only) 47.1 % (42-52); Hemoglobin 16.1 g/dL (14.0-18.0); Mean Corpuscular Hemoglobin 31.6 pg (25-34); Mean Corpuscular Hgb Conc 34.2 g/dL (32-36); Mean Corpuscular Volume 92.4 fL (80-100); Mean Platelet Volume 10.3 fL (7.4-10.4); Platelet Count 212 K/uL (130-400); RDW Coefficient of Variation 13.5 % (11.5-14.5); RDW Standard Deviation 45.9 fL (36.4-46.3); White Blood Count 6.85 K/uL (4.8-10.8)
[2021-06-27 07:04] LABS: Calcium 9.1 mg/dl (8.5-10.1); Creatinine Clr Calc Pharmacy 92.6 ml/min; Est GFR (African American) 98.8 ml/min; Est GFR (Non-African American) 85.2 ml/min; Magnesium 1.9 mg/dl (1.8-2.4); Potassium 4.1 mmol/L (3.5-5.1)
[2021-06-27] MEDS: METOPROLOL TARTRATE 25 MG TAB PO SCH (08:57)
[2021-06-27] MEDS: ENALAPRIL MALEATE 10 MG TAB PO SCH (09:10)
[2021-06-27] MEDS: ENOXAPARIN INJ 40 MG/0.4 ML SYR SQ SCH (10:35)
--- NOTE | 2021-06-27 11:53 | Cardiology Progress Note ---
Date of Service June 27, 2021 Assessment & Plan (1) Frequent PVCs: (2) Mitral regurgitation: (3) LVH (left ventricular hypertrophy): (4) Lightheadedness: (5) Hypertension: Plan: ASSESSMENT/PLAN: 1. Frequent PVCs: He appears to be symptomatic, which is affecting his quality of life. He has felt much better after metoprolol initiated on 06/26/2021 evening. Discussed arranging for outpatient Holter monitor to quantitate PVCs. 2. Asymmetric left ventricular hypertrophy: Could possibly represent hypertrophic cardiomyopathy. This may be playing a role with his exertional lightheadedness. No obvious LVOT obstruction at rest. Recommend beta-negar. Will order stress echo to evaluate for LVOT obstruction with exercise, as well as blood pressure response. 3. Mitral regurgitation: Discussed echo findings. Non severe. Monitor over time. 4. Lightheadedness: Unclear if this is related toPVCs, severe asymmetric LVH with LVOT obstruction (although not seen at rest conditions), or other etiology. No symptoms today. Stress echo today. 5. Tobacco abuse: Stop smoking. 6. Hypertension: Amlodipine was discontinued and beta-negar initiated. Beta- negar may offer other benefits in regards to his palpitations. Also if he does develop exertional LVOT obstruction, beta-negar could offer benefit and medications which reduce preload, could exacerbate such hemodynamics. 7. Disposition: Patient care communicated with Dr. Weaver of the primary hospitalist service. On discharge, recommend follow up in the cardiology office. Will arrange for outpatient Holter monitor and office will contact him with date/time of appointment. Addendum: Stress echo was performed. No ischemic changes noted on preliminary review. Target heart rate was attained any exercise approximately 7 minutes on Thee protocol. PVCs improved dramatically with exertion. There is no evidence of LVOT obstruction following exercise. Dr. Weaver made aware. Admission and Anticipated Discharge Date Admission Date: June 26, 2021 Subjective He feels much better today. He states that he felt very well overnight as well. No chest pain, shortness of breath, palpitations, syncope, near-syncope, or edema. He is tolerating metoprolol well. Review of systems: As above. Physical Exam Physical Exam: Gen.: No acute distress. Alert and oriented. HEENT: Anicteric sclera. Neck: No JVD. Cardiac: PMI was nondisplaced. No ventricular heave. Regular with ectopy. Normal S1-S2. 1/6 holosystolic murmur. No rubs or gallops. Pulmonary: Clear to auscultation bilaterally without wheezes, rales, or rhonchi. Abdomen: Soft, nontender, nondistended, with normoactive bowel sounds. No bruits noted. Extremities: 2+ radial pulses bilaterally. No edema or cyanosis. Psychiatric: Affect appears appropriate. Results & Data ([facility]) Vital Signs (Past 12 Hours) Vital Signs Temp Pulse Pulse Pulse Resp BP Pulse Ox 06/27/21 11:34 36.3 C L 53 L 14 118/68 93 06/27/21 08:55 66 112/61 06/27/21 07:35 36.3 C L 66 16 120/72 94 06/27/21 07:00 65 06/27/21 04:00 36.6 C 64 18 124/64 94 Laboratory Results Laboratory Results - last 24 hr 06/27/21 06/27/21 06:11 06:11 WBC 6.85 RBC 5.10 Hgb 16.1 Hct 47.1 MCV 92.4 MCH 31.6 MCHC 34.2 RDW Std Deviation 45.9 RDW Coeff of Uli 13.5 Plt Count 212 MPV 10.3 Sodium 137 Potassium 4.1 Chloride 107 Carbon Dioxide 26 Anion Gap 4.0 BUN 12 Creatinine 0.88 Est Cr Clr Drug Dosing 92.6 Est GFR ( Amer) 98.8 Est GFR (Non-Af Amer) 85.2 BUN/Creatinine Ratio 14.0 Glucose 105 H Calcium 9.1 Magnesium 1.9 Diagnostic Findings Telemetry personally reviewed: Sinus rhythm in the 60s. PVCs. He did appear to have more time with out PVCs based on trend, however PVCs were not quantitated fully. No arrhythmia. Medications Administered Current Inpatient Medications Acetaminophen (Acetaminophen 325 Mg Tab) 650 mg PO Q4H PRN PRN Reason: Pain or Fever Stop: 07/26/21 09:05 Enalapril Maleate (Enalapril Maleate 10 Mg Tab) 20 mg PO DAILY [facility] Stop: 07/26/21 09:29 Last Admin: 06/27/21 09:10 Dose: Not Given Documented by: Enoxaparin Sodium (Enoxaparin Inj 40 Mg/0.4 Ml Syr) 40 mg SQ DAILY [facility] Stop: 07/26/21 09:29 Last Admin: 06/27/21 10:35 Dose: 40 mg Documented by: Metoprolol Tartrate (Metoprolol Tartrate 25 Mg Tab) 25 mg PO BID BRETT Stop: 07/26/21 20:59 Last Admin: 06/27/21 08:57 Dose: 25 mg Documented by: Miscellaneous (Dutasteride-Order Awaiting Action) 1 ea N/A QS BRETT Stop: 07/26/21 15:59 Last Admin: 06/27/21 10:36 Dose: Not Given Documented by: Ondansetron HCl (Ondansetron Inj 2 Mg/Ml 2 Ml Vial) 4 mg IV Q6H PRN PRN Reason: Nausea Stop: 07/26/21 09:05 PG Care Time/CCT Total # of Minutes Spent Total Time Spent with Patient: Total time spent is greater than 50% in coordination of care (as documented) at patient's floor/unit and/or counseling patient: Coding Level of Care Code 47213 Office/Outpt Visit, Est Diagnoses Frequent PVCs I49.3 Mitral regurgitation I34.0 LVH (left ventricular hypertrophy) I51.7 Lightheadedness R42 Hypertension I10
--- NOTE | 2021-06-27 14:39 | Discharge Summary ---
Date of Service June 27, 2021 Admission HPI Per Admitting Provider Attending: Dr. Weaver This is a 71-year-old male with a past medical history of hypertension, BPH. He has a very remote tobacco abuse history in college. Otherwise, an occasional cigar. 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 The patient states that he has had progressive palpitations over the last several months. They have gotten to the point where it is more of a flutter. He also reports that the frequency has increased. He was seen in the outpatient setting and referred for Holter monitor which was going to be placed tomorrow. Overnight he had increased flutter associated with nausea and came to the emergency department for evaluation at the advice of his Sandra. He is quite active in his job and reports no chest pain at rest or with exertion. He has no dyspnea with exertion. He has no significant shortness of breath. He denies any prior history of heart disease other than hypertension. His father had some heart disease but at the age of 85. His mother had no heart disease that the patient is aware of. He has no history of malignancy. No history of thromboembolic disease. No history of anemia. He denies pleuritic chest pain. He has no cough or sputum production and further denies hemoptysis. No lower extremity pain. No lower extremity edema. He is not aware of any tachyarrhythmia with the feelings of palpitation or a flutter. He has no other acute complaints. The patient has 2 children who are alive and well. He denies any recent fever. He has no other nausea or vomiting. He has no diarrhea. He has no Covid-like symptoms. He is vaccinated for Covid with Pfizer x2. Principal Diagnosis Presyncope, frequent PVCs Discharge Exam Constitutional well developed, well nourished and comfortable; no acute distress Neck trachea midline, no thyromegaly Respiratory normal respiratory effort, lungs clear to auscultation Cardiovascular Rate/Rhythm: regular rate (bigeminy pattern, regular irregular) Heart Sounds: normal S1 and normal S2; no murmur Vessels: no JVD Extremities: normal capillary refill; no edema Gastrointestinal (Abdomen) normal bowel sounds, soft, nontender, no hepatosplenomegaly Musculoskeletal no cyanosis or clubbing, extremities motor strength 5/5 Skin no rashes, warm and dry Neurologic normal touch/pain/proprioception, CN's II-XI intact bilaterally, moves all extremities and awake; no focal motor deficits Psychiatric A+Ox3, euthymic affect Discharge Data Allergies Allergy/AdvReac Type Severity Reaction Status Date / Time No Known Allergies Allergy Verified 10/02/19 13:50 Consultations 06/26/21 06:42 ED Decision to Admit Stat 06/26/21 09:06 Consult Cardiology Routine Hospital Course (1) Frequent PVCs: Attending: Dr. Clifton Weaver Impression: 71-year-old male with history of progressive PVCs and now with feeling of atrial flutter. No syncope. No chest pain. Abnormal ECG with PVCs and prolongation of QRS duration. Troponin negative. Being admitted to telemetry for further monitoring and evaluation by cardiology Echocardiogram - LVH, asymmetric, mitral regurgitation troponin negative Electrolytes balanced TSH within normal limits frequent PVCs on the monitor, bigeminy pattern often stress echocardiogram on 06/27, no outflow obstruction on exertion, decreased frequency of PVC with exertion, no chest pain, no ischemic changes d/w Dr. Santos will discharge on metoprolol 25mg BID to reduce PVCs, reduce symptoms will get Holter monitor outpatient, his office will arrange follow up with cardiology (2) Palpitation: (3) LVH (left ventricular hypertrophy): (4) Mitral regurgitation: (5) Hypertension: Blood pressures well controlled start on metoprolol 25mg BID for PVCs will change his amlodipine/enalapril combo pill to just enalapril 20mg daily follow up with PCP for BP check, if running low or low normal then either reduce enalapril or stop all together (6) BPH (benign prostatic hyperplasia): Continue dutasteride and tamsulosin No history of prostate cancer (7) Other eosinophilia: Eosinophils elevated at 1.01 Incidental finding on differential No reports of myalgias or chest pain No history of ascites No indication for sepsis No reports of seasonal allergies or history of asthma Outpatient work-up as needed could just repeat CBC with diff as outpatient (8) Abnormal ECG: (9) DVT prophylaxis: Chemical prophylaxis with enoxaparin 40 mg subcu every 24 hours Ambulate as tolerated with telemetry discharge to home Total Time Total Time Spent Total Time Spent (In Minutes): 33 Discharge Plan Discharge Items Patient Disposition: Home - Self-Care Reason For Visit: BRADYARRHYTHMIA, PRE-SYNCOPE Discharge Diagnosis: frequent PVCs presyncope left ventricular hypertrophy Condition on Discharge: Good Goals: follow up with cardiology Holter monitor Activity: Resume your previous activity Driving/Machine Use: No limitations Weightbearing: Full weightbearing Non-emergency contact: Primary Care Provider and Mercerizer Call non-emergency contact if: you have any medication questions and your symptoms worsen Follow-up/Referrals: Po Santos MD [Physician] - (several weeks) Robin Lara MD [Primary Care Provider] - (one week) Diet: Heart Healthy Addtl Attending Provider Instructions: Medications: note the following changes, new medications - METOPROLOL: 25mg twice a day, this is to reduce PVCs, it controls blood pressure - ENALAPRIL: 20mg daily, please note that you need to STOP the amlodipine/enalapril combination, we recommend stopping the amlodipine component PVCs, left ventricular hypertrophy, mitral regurgitation, hypertension echocardiogram with left ventricular hypertrophy you did well with stress echo today, no evidence of outflow obstruction, PVCs actually decreased on exertion which is good sign Dr. Santos, cardiology, recommends taking metoprolol to help with PVCs his office will arrange for Holter monitor to determine frequency of PVCs while on the metoprolol follow up with PCP in one week and with cardiology in several weeks Pending Studies at Discharge: No Stand-Alone Forms: [facility] Smoking Cessation Medications and DC Order Prescriptions: New metoprolol tartrate 25 mg Tablet 25 mg PO BID 30 Days Qty: 60 RF: 3 enalapril maleate 20 mg tablet 20 mg PO DAILY 30 Days Qty: 30 RF: 3 Continued dutasteride [Avodart] 0.5 mg capsule 0.5 mg PO DAILY RF: 0 tamsulosin [Flomax] 0.4 mg capsule 0.8 mg PO DAILY RF: 0 Discontinued amlodipine-benazepril [Lotrel] 5-20 mg capsule 20 cap PO DAILY RF: 0 Discharge Orders: Discharge Order (Routine); Ordered 06/27/21 Ordered By: Clifton Weaver Admission Data Admit Date/Time: 06/26/21 07:10 Attending Provider: Clifton Weaver Admit Provider: Clifton Weaver Primary Care Provider: Robin Lara Other Providers: Clifton Weaver ; Danielle,Po W. Other Interventions: Discharge Summary Assessment (RN) Last Done: 06/27/21 15:26 Coding Level of Care Code 57831 OBS Care - Discharge Diagnoses Abnormal ECG R94.31 Hypertension I10 BPH (benign prostatic hyperplasia) N40.0 Other eosinophilia D72.19 DVT prophylaxis Z29.9 Palpitation R00.2 LVH (left ventricular hypertrophy) I51.7 Frequent PVCs I49.3 Mitral regurgitation I34.0
--- NOTE | 2021-06-27 17:57 | XCELERA ---
[id number]
--- NOTE | 2021-06-28 06:48 | Electrocardiogram Report ---
Test Reason : Blood Pressure : / mmHG Vent. Rate : 066 BPM Atrial Rate : 066 BPM P-R Int : 192 ms QRS Dur : 128 ms QT Int : 420 ms P-R-T Axes : 066 -52 086 degrees QTc Int : 440 ms Sinus rhythm with occasional Premature ventricular complexes Left axis deviation Non-specific intra-ventricular conduction block Poor R wave progression, consider anterior SD vs. lead placement vs. LVH Abnormal ECG When compared with ECG of 26-JUN-2021 04:57, No significant change Confirmed by Po Santos ([id number]) on 06/28/2021 6:48:33 AM Referred By: REFERRED SELF Confirmed By:Po Santos
== END 2021-06-27 16:00 | disposition home or self-care (01) ==
LOC: ED 04:44 → 2N 04:44